=== PATIENT | male | born 1990 | race Asian ===

== ENCOUNTER 2024-01-04 22:48 | Outpatient (CLI) | payer OTHER | END 2024-01-04 23:59 | disposition critical access hospital (66) | LOC: EMS 22:48 | DX: R10.9 Unspecified abdominal pain (principal); R33.9 Retention of urine, unspecified; R11.10 Vomiting, unspecified | CPT/HCPCS: A0425; A0427 ==

== ENCOUNTER 2024-01-04 23:08 | Emergency (ER) | payer OTHER ==
[2024-01-04 23:17] VITALS: O2SAT 99
[2024-01-04 23:29] LABS: BILIRUBIN,URINE NEGATIVE (NEGATIVE); GLUCOSE, URINE (UA) NEGATIVE (NEGATIVE); KETONES,URINE (UA) NEGATIVE (NEGATIVE); LEUKOCYTE ESTERASE, URINE NEGATIVE (NEGATIVE); NITRITE,URINE NEGATIVE (NEGATIVE); OCCULT BLOOD,URINE LARGE (NEGATIVE); PROTEIN,URINE TRACE mg/dL (NEGATIVE); UROBILINOGEN,URINE 0.2 (NORMAL) E.U./dL (NORMAL)
[2024-01-04 23:31] LABS: CLARITY,URINE CLEAR (CLEAR)
[2024-01-04 23:47] LABS: BACTERIA,URINE Rare /HPF (None Seen); MUCUS,URINE Moderate Strands; SPERM,URINE PRESENT; SQUAMOUS EPITHELIAL CELL,UR FEW Squamous (<= Few); WBC,URINE 0-3 /HPF (0-3)
--- NOTE | 2024-01-05 01:03 | ED Physician Documentation ---
PD HPI MALE - Stated complaint Stated Complaint: LT FLANK PX - Chief complaint Chief Complaint: Abd Pain - History obtained from History obtained from: Patient, EMS - Additional information Additional information: The pt comes to the ED with CC of L flank pain, now resolved. It came on suddenly tonight, and lasted until the pt was given Toradol en-route. He felt nauseated initially, but this has also resolved. No dysuria, fever, or chills. No other complaints at this time. Pt has a h/o kidney stone, and this feels similar. PD PAST MEDICAL HISTORY - Past Medical History Past Medical History: Yes : Kidney stones - Past Surgical History Past Surgical History: No - Present Medications Home Medications: Ambulatory Orders Medication Instructions Recorded Confirmed No Known Home Medications 01/04/24 01/04/24 - Allergies Allergies/Adverse Reactions: Allergies Allergy/AdvReac Type Severity Reaction Status Date / Time No Known Drug Allergies Allergy Verified 01/04/24 23:15 - Social History Does the pt smoke?: No Smoking Status: Never smoker PD ED PE NORMAL - Vitals Vital signs reviewed: Yes - General General: Alert and oriented X 3, No acute distress, Well developed/nourished - HEENT HEENT: Atraumatic, PERRL, EOMI, Moist mucous membranes - Neck Neck: Supple, no meningeal sign - Cardiac Cardiac: RRR, No murmur - Respiratory Respiratory: No respiratory distress, Clear bilaterally - Abdomen Abdomen: Soft, Non tender, Non distended - Derm Derm: Warm and dry - Extremities Extremities: No deformity - Neuro Neuro: Alert and oriented X 3, Other (grossly intact) - Psych Psych: Normal mood, Normal affect Results - Vitals Vitals: Oxygen O2 Source Room air - Labs Labs: Laboratory Tests 01/04/24 23:14 Urine Color YELLOW Urine Clarity CLEAR Urine pH 6.0 Ur Specific [place] >=1.030 H Urine Protein TRACE Urine Glucose (UA) NEGATIVE Urine Ketones NEGATIVE Urine Occult Blood LARGE H Urine Nitrite NEGATIVE Urine Bilirubin NEGATIVE Urine Urobilinogen 0.2 (NORMAL) Ur Leukocyte Esterase NEGATIVE Urine RBC 11-25 H Urine WBC 0-3 Ur Squamous Epith Cells FEW Squamous Urine Bacteria Rare Urine Mucus Moderate Strands Urine Sperm PRESENT Ur Microscopic Review INDICATED Urine Culture Comments NOT INDICATED - Rads (name of study) CT abd/pelvis Relevant Findings:: Final report received, See rad report (3mm stone within the bladder on the R, could have arisen from either kidney) PD Medical Decision Making - ED course Complexity details: reviewed results, re-evaluated patient, considered differential, d/w patient ED course: The pt was asymptomatic upon arrival in the ED. UA showed a large amount of blood, and CT was positive for a stone in the bladder. I suspected the pt had just passed the stone, and I discussed this with him. He is stable for d/c home. Departure - Departure Disposition: 01 Home, Self Care Clinical Impression: Acute flank pain, Kidney stone Condition: Stable Instructions: ED Stone Renal W Colic Comments: Your CT scan shows what appears to be a stone that has passed into your bladder. Although it has drifted over to the right side your bladder, it most likely is the stone that you passed from the left. Your urinalysis shows blood but is otherwise unremarkable. You will most likely urinate the stone out in the next day or so. You may experience a very brief pain in your penis as the stone shoots through but will be very quick. You do not appear to have any other stones in your kidneys at this time. Please be sure you drink plenty of fluids and schedule follow-up with your primary as needed. Forms: PCP List Discharge Date/Time: 01/05/24 01:11
[2024-01-05 01:07] VITALS: BP 128/98
--- NOTE | 2024-01-05 01:17 | CT Report ---
PROCEDURE: Abdomen/Pelvis WO INDICATIONS: sudden onset L flank pn, h/o kidney stone TECHNIQUE: A CT scan of the abdomen and pelvis was performed without the use of intravenous contrast. Images we re recorded and evaluated at appropriate window settings. Reformats: coronal and sagittal. For radiat ion dose reduction, the following was used: automated exposure control, adjustment of mA and/or kV ac cording to patient size. COMPARISON: None. FINDINGS: Image quality: Diagnostic. Lower chest: Visible lung bases are clear. Normal size heart. No hernia. Liver: No contour-deforming mass. Gallbladder and biliary tree: No stones or gallbladder wall thickening. No biliary dilatation. Spleen: No splenomegaly. Pancreas: No pancreatic ductal dilation. Adrenals: No adrenal nodule. Kidneys and ureters: No intrarenal calcifications or hydronephrosis. No contour deforming mass or per inephric inflammation. No hydroureter or periureteric inflammation. No ureteral calcifications. Stomach, bowel and peritoneum: Stomach and small bowel are normal. Normal appendix. Slightly increase d quantity of solid stool in the colon. Decompressed distal colon. Lymph nodes: No central or retroperitoneal adenopathy. Vessels: No infrarenal aortic aneurysm. PELVIS Reproductive organs: Unremarkable. Bladder: Decompressed urinary bladder. 3 mm intraluminal calcification is present adjacent to the rig ht ureterovesicular junction. Pelvic lymph nodes: No pelvic adenopathy by size criteria. Bones: No aggressive osseous abnormality. Other: Tiny fat-containing left inguinal hernia. IMPRESSION: 3 mm intravesicular calcification adjacent to the right ureterovesicular junction, but could have loly sen from either kidney. There are no residual changes of obstructive uropathy. Reviewed by: Michelle Izquierdo MD on 01/05/2024 1:16 AM PDT Approved by: Michelle Izquierdo MD on 01/05/2024 1:16 AM PDT Station ID: [id number]
== END 2024-01-05 01:11 | disposition home or self-care (01) ==
LOC: ED 23:08
DX: N21.0 Calculus in bladder (principal); R31.9 Hematuria, unspecified
CPT/HCPCS: 36415; 81001; 81003; 87086; 99283; 99284